=== PATIENT | female | born 1970 | race Caucasian/White ===

== ENCOUNTER 2017-08-27 08:36 | Emergency (ER) | payer BC ==
[2017-08-27 09:27] VITALS: BP 144/86
--- NOTE | 2017-08-27 12:48 | UC ---
Upper Extremity HPI - HPI Summary HPI Summary: left arm pain x 3 weeks, + tingling and numbness down her left arm to her fingers no known injures , no neck pain - History of Current Complaint Chief Complaint: UCUpperExtremity Stated Complaint: LFT ARM,HAND PAIN X2WKS/JAW PAIN Time Seen by Provider: 08/27/17 09:32 Hx Obtained From: Patient Hx Last Menstrual Period: 08/11/17 Onset/Duration: Gradual Onset, Lasting Weeks - 3, Still Present Severity Initially: Moderate Severity Currently: Moderate Pain Intensity: 0 Pain Scale Used: 0-10 Numeric Location Of Pain: Is Discrete @ - right arm Character: Dull, Aching Aggravating Factor(s): Movement Alleviating Factor(s): Nothing Associated Signs And Symptoms: Positive: Numbness/Tingling. Negative: Swelling , Redness, Bruising, Fever, Weakness - Allergies/Home Medications Allergies/Adverse Reactions: Allergies Allergy/AdvReac Type Severity Reaction Status Date / Time Amoxicillin Allergy Rash Verified 08/27/17 09:27 Penicillins Allergy Rash Verified 02/09/14 17:47 Home Medications: Home Medications Cholecalciferol TAB* [Vitamin D TAB*] 2,000 units PO DAILY 08/27/17 [History Confirmed 08/27/17] Psoiasis Creams And Shampoo 08/27/17 [History] PMH/Surg Hx/FS Hx/Imm Hx Psychological History: Depression - Surgical History Surgical History: Yes Surgery Procedure, Year, and Place: vein stripping - Family History Known Family History: Negative: Diabetes - Social History Alcohol Use: Weekly Alcohol Amount: 4-5 Substance Use Type: None Smoking Status (MU): Never Smoked Tobacco Review of Systems Constitutional: Negative Skin: Negative Eyes: Negative ENT: Negative Respiratory: Negative Cardiovascular: Negative Is Patient Immunocompromised?: No All Other Systems Reviewed And Are Negative: Yes Physical Exam Triage Information Reviewed: Yes Appearance: Well-Appearing, No Pain Distress, Well-Nourished Vital Signs: Initial Vital Signs Temp 99 F 08/27/17 09:12 Pulse 69 08/27/17 09:12 Resp 18 08/27/17 09:12 BP 144/86 08/27/17 09:12 Vital Signs Reviewed: Yes Eye Exam: Normal Eyes: Positive: Conjunctiva Clear ENT: Positive: Normal ENT inspection, Hearing grossly normal, Pharynx normal Neck exam: Normal Neck: Positive: Supple, Nontender, No Lymphadenopathy Respiratory: Positive: Chest non-tender, Lungs clear, Normal breath sounds Cardiovascular: Positive: RRR, No Murmur, Pulses Normal Musculoskeletal Exam: Normal Musculoskeletal: Positive: Strength Intact, ROM Intact, No Edema, Other: - right arm: no tenderness, no swelling , good ROM, Skin Exam: Normal Upper Extremity Course/Dx - Differential Dx/Diagnosis Provider Diagnoses: thoracic outlet syndrome Discharge - Discharge Plan Condition: Stable Disposition: HOME Patient Education Materials: Thoracic Outlet Syndrome (ED) Referrals: Farhan MI,Martha Pruitt [Primary Care Provider] - 7 Days Additional Instructions: pinch nerve cont. with rest, heat, stretching , Ibuprofen as needed for pain follow up with your pcp in one week if not improving
== END 2017-08-27 09:49 | disposition home or self-care (01) ==
LOC: UCCORT 08:36
DX: G54.0 Brachial plexus disorders (principal); Z72.89 Other problems related to lifestyle
CPT/HCPCS: 99211; G0463

== ENCOUNTER 2017-09-17 18:11 | Emergency (ER) | payer BC ==
[2017-09-17 19:24] VITALS: BP 119/77
--- NOTE | 2017-09-17 19:48 | UC ---
FLU HPI - HPI Summary HPI Summary: Patient presents with complaints of 2 day onset generalized fatigue and malaise , fever, chills, and persistent dry course. Symptoms came on suddenly and have processed very quickly. She is able to eat, drink and is controlling her fever with tylenol. - History of Current Complaint Hx Obtained From: Patient Hx Last Menstrual Period: 2 WEEKS AGO Onset/Duration: Sudden Onset, Lasting Days Severity Currently: Mild Pain Intensity: 0 Associated Signs & Symptoms: Positive: Fever, Myalgia, Cough, Nasal Congestion - Risk Factors Influenza Risk Factors: Negative <Vinita Grimm - Last Filed: 09/17/17 19:51> <Rosalind Chi - Last Filed: 09/17/17 20:17> - History of Current Complaint Chief Complaint: UCRespiratory Stated Complaint: COUGH, FEVER Time Seen by Provider: 09/17/17 19:34 - Allergy/Home Medications Allergies/Adverse Reactions: Allergies Allergy/AdvReac Type Severity Reaction Status Date / Time MS Amoxicillin [Amoxicillin] Allergy Rash Verified 09/17/17 19:24 MS Penicillins [Penicillins] Allergy Rash Verified 09/17/17 19:24 PMH/Surg Hx/FS Hx/Imm Hx Previously Healthy: Yes - Surgical History Surgical History: Yes Surgery Procedure, Year, and Place: vein stripping - Family History Known Family History: Negative: Diabetes - Social History Lives: Alone Alcohol Use: Weekly Alcohol Amount: 3-4 DRINKS/WEEK Substance Use Type: None Smoking Status (MU): Never Smoked Tobacco <Vinita Grimm - Last Filed: 09/17/17 19:51> Review of Systems Constitutional: Fever, Fatigue Skin: Negative Eyes: Negative ENT: Negative Respiratory: Cough Cardiovascular: Negative Gastrointestinal: Negative Genitourinary: Negative Motor: Negative Neurovascular: Negative Musculoskeletal: Negative Neurological: Negative Psychological: Negative Is Patient Immunocompromised?: No All Other Systems Reviewed And Are Negative: Yes <Vinita Grimm - Last Filed: 09/17/17 19:51> Physical Exam Triage Information Reviewed: Yes Appearance: Ill-Appearing Vital Signs: Initial Vital Signs Temp 99.6 F 09/17/17 19:20 Pulse 76 09/17/17 19:20 Resp 16 09/17/17 19:20 BP 119/77 09/17/17 19:20 Pulse Ox 98 09/17/17 19:20 Vital Signs Reviewed: Yes Eye Exam: Normal ENT: Positive: Pharyngeal erythema, Uvula midline Neck exam: Normal Neck: Positive: 1 Respiratory: Positive: Lungs clear, Normal breath sounds, No respiratory distress, No accessory muscle use Cardiovascular Exam: Normal Cardiovascular: Positive: RRR Abdominal Exam: Normal Skin Exam: Normal <Grimm,Vinitaharshal Gonsalves - Last Filed: 09/17/17 19:51> Vital Signs: Initial Vital Signs Temp 99.6 F 09/17/17 19:20 Pulse 76 09/17/17 19:20 Resp 16 09/17/17 19:20 BP 119/77 09/17/17 19:20 Pulse Ox 98 09/17/17 19:20 <Rosalind Chi - Last Filed: 09/17/17 20:17> Flu Course/Dx - Course Course Of Treatment: Patient presents with an unremarkable past medical history. She presents with low grade fever, of 99.6, and symptoms consistent with influenza. She was treated with Tamiflu and robitussin/codeine cough syrup and told to increase fluids, promote rest, and monitor for symtpom improvment. If for any reason her symtpoms do not improve as anticipates she was told she would need to follow up either with her PCP or the ER. She verbalized understanding of and was in agreement with the discharge plan. - Differential Dx/Diagnosis Differential Diagnosis/HQI/PQRI: Influenza Provider Diagnoses: influenza <Vinita Grimm - Last Filed: 09/17/17 19:51> Discharge <Vinita Grimm - Last Filed: 09/17/17 19:51> <Rosalind Chi - Last Filed: 09/17/17 20:17> - Discharge Plan Condition: Stable Disposition: HOME Prescriptions: Guaifenesin-Codeine [Codeine/Guaifenesin 100-10 mg/5Ml] 5 ml PO Q6H PRN #180 adam MDD 4 PRN Reason: Cough Oseltamivir CAP* [Tamiflu CAP*] 75 mg PO BID #10 cap Patient Education Materials: Influenza (DC) Forms: *Gen. Provider Communication Referrals: Farhan MI,Martha Pruitt [Primary Care Provider] - Attestation Statement User Type: Provider - I was available for consult. This patient was seen by the JOANNA. The patient was not presented to, seen by, or examined by me. -Ny <Rosalind Chi - Last Filed: 09/17/17 20:17>
== END 2017-09-17 19:55 | disposition home or self-care (01) ==
LOC: UCEAST 18:11
DX: J11.1 Influenza due to unidentified influenza virus with other respiratory manifestations (principal); Z88.3 Allergy status to other anti-infective agents; Z88.0 Allergy status to penicillin
CPT/HCPCS: 99212; G0463